=== PATIENT | female | born 1980 | race Caucasian/White ===

== ENCOUNTER 2022-02-02 14:30 | Emergency (ER) | payer MEDICAID ==
[~2022-02-02] VITALS: Ht 157.5 cm; Wt 72.6 kg
[2022-02-02 14:41] VITALS: BP 141/84
--- NOTE | 2022-02-02 14:48 | NUR ---
PT AMB TO BED 12
[2022-02-02] MEDS ORDERED: FAMOTIDINE 20 MG/2 ML VIAL IVP ONE (15:05)
[2022-02-02] MEDS ORDERED: NACL 0.9% 1,000 ML IV SCH (15:05)
[2022-02-02] MEDS ORDERED: KETOROLAC 30 MG/ML VIAL IVP ONE (15:05)
[2022-02-02] MEDS ORDERED: ONDANSETRON 4 MG/2 ML VIAL IVP ONE (15:05)
[2022-02-02 15:33] LABS: BASOPHILS # (AUTO) 0.1 K/uL (0.00-0.22); BASOPHILS % (AUTO) 0.8 % (0.0-2.0); EOSINOPHILS # (AUTO) 0.1 K/uL (0-0.4); EOSINOPHILS % (AUTO) 1.1 % (0.0-4.0); HEMATOCRIT 34.6 % (36-48); HEMOGLOBIN 11.1 g/dL (12.0-16.0); LYMPHOCYTES # (AUTO) 2.1 K/uL (2.5-16.5); LYMPHOCYTES % (AUTO) 23.1 % (20.5-51.1); MEAN CORPUSCULAR HEMOGLOBIN 23 pg (27-31); MEAN CORPUSCULAR HGB CONC 32 g/dL (33-37); MEAN CORPUSCULAR VOLUME 73.3 fL (80-94); MONOCYTES # (AUTO) 0.6 K/uL (0.8-1.0); MONOCYTES % (AUTO) 7.2 % (1.7-9.3); NEUTROPHILS # (AUTO) 6.1 K/uL (1.8-7.7); NEUTROPHILS % (AUTO) 67.8 % (42.2-75.2); PLATELET COUNT (AUTO) 290 K/uL (140-450); RED BLOOD CELL COUNT(AUTO) 4.72 MIL/uL (4.20-5.40); RED CELL DISTRIBUTION WIDTH 23.8 % (11.6-13.7)
--- NOTE | 2022-02-02 15:38 | NUR ---
COVID EMILY AND INFLUENZA SWABS COLLECTED AND HANDED TO ARLINE HALL TECH
[2022-02-02 15:59] LABS: ALBUMIN 3.8 g/dL (3.4-5.0); ANION GAP 13.9 (8-16); CARBON DIOXIDE 28.5 mmol/L (21-32); CREATININE 0.5 mg/dL (0.6-1.3); POTASSIUM 3.4 mmol/L (3.5-5.1); TOTAL BILIRUBIN 0.2 mg/dL (0.0-1.0)
[2022-02-02 16:50] LABS: APPEARANCE,URINE CLEAR (CLEAR); BILIRUBIN,URINE NEGATIVE (NEGATIVE); BLOOD, URINE NEGATIVE (NEGATIVE); COLOR,URINE YELLOW (YELLOW); LEUKOCYTE ESTERASE ,URINE NEGATIVE (NEGATIVE); NITRITE, URINE NEGATIVE (NEGATIVE); PH,URINE 6.5 (5.0-9.0); UGLUCOSE NEGATIVE (NEGATIVE)
[2022-02-02] MEDS ORDERED: BISM262C53 PO (17:13)
[2022-02-02] MEDS ORDERED: ONDA-188 PO (17:13)
[2022-02-02] MEDS ORDERED: ACET-10509 PO (17:13)
[2022-02-02] MEDS ORDERED: IBUP-2213 PO (17:13)
[2022-02-02] MEDS ORDERED: MORPHINE SULFATE 4 MG/ML SYR IVP ONE (17:15)
--- NOTE | 2022-02-02 18:04 | NUR ---
41/F PRESENTS TO ED WITH C/O INTERMITTENT CHEST X2 DAYS. PATIENT DENIES INJURY, TRAUMA OR RECENT HEAVY LIFTING. PATIENT DENIES TAKING MEDS FOR SYMPTOMS, DENIES COUGH, N/V/D, FEVERS OR RECENT SICK CONTACTS.
[2022-02-02 18:27] VITALS: BP 125/72
--- NOTE | 2022-02-02 18:27 | NUR ---
Patient discharged with v/s stable. Written and verbal after care instructions given and explained. Patient alert, oriented and verbalized understanding of instructions. Ambulatory with steady gait. All questions addressed prior to discharge. ID band removed. Patient advised to follow up with PMD. Rx of TYLENOL EXTRA STRENGTH, PEPTO BISMOL, IBUPROFEN AND ZOFRAN given. Patient educated on indication of medication including possible reaction and side effects. Opportunity to ask questions provided and answered.
== END 2022-02-02 18:27 | disposition home or self-care (01) ==
LOC: MED 14:30
DX: B34.9 Viral infection, unspecified (principal); Z20.822 Contact with and (suspected) exposure to COVID-19; R07.89 Other chest pain; R11.0 Nausea; I10 Essential (primary) hypertension; D64.9 Anemia, unspecified; Z79.899 Other long term (current) drug therapy
CPT/HCPCS: 36415; 71045; 80053; 81003; 81025; 83690; 85025; 87426; 87804; 93005; 96361; 96374; 96375; 99285; J1885; J2270; J2405; J3490

== ENCOUNTER 2023-06-14 15:55 | Emergency (ER) | payer MEDICAID ==
[~2023-06-14] VITALS: Ht 154.9 cm; Wt 74.4 kg
[2023-06-14 15:55] VITALS: BP 132/70; PULSE 71; RESP 18; TEMP 98; O2SAT 100
[~2023-06-14 15:55] MED LIST: ACET-10509 PO; BISM262C53 PO; IBUP-2213 PO; ONDA-188 PO
[2023-06-14] MEDS: NACL 0.9% 1,000 ML IV ONE (17:23)
[2023-06-14 17:28] LABS: BASOPHILS # (AUTO) 0.1 K/uL (0.00-0.22); BASOPHILS % (AUTO) 1.5 % (0.0-2.0); EOSINOPHILS # (AUTO) 0.1 K/uL (0-0.4); EOSINOPHILS % (AUTO) 0.9 % (0.0-4.0); HEMATOCRIT 27.5 % (36-48); HEMOGLOBIN 8.6 g/dL (12.0-16.0); LYMPHOCYTES # (AUTO) 2.3 K/uL (2.5-16.5); MEAN CORPUSCULAR HEMOGLOBIN 19 pg (27-31); MEAN CORPUSCULAR HGB CONC 31 g/dL (33-37); MEAN CORPUSCULAR VOLUME 60.5 fL (80-94); MONOCYTES # (AUTO) 0.6 K/uL (0.8-1.0); MONOCYTES % (AUTO) 7.3 % (1.7-9.3); NEUTROPHILS # (AUTO) 5.5 K/uL (1.8-7.7); NEUTROPHILS % (AUTO) 63.3 % (42.2-75.2); PLATELET COUNT (AUTO) 333 K/uL (140-450); RED BLOOD CELL COUNT(AUTO) 4.55 MIL/uL (4.20-5.40); RED CELL DISTRIBUTION WIDTH 18.7 % (11.6-13.7); WHITE BLOOD COUNT (AUTO) 8.7 K/uL (4.8-10.8)
[2023-06-14 17:43] LABS: ANION GAP 12.8 (8-16); CALCIUM 8.7 mg/dL (8.5-10.1); CARBON DIOXIDE 26.8 mmol/L (21-32); CREATININE 0.5 mg/dL (0.6-1.3); POTASSIUM 3.6 mmol/L (3.5-5.1)
[2023-06-14 18:04] LABS: TOTAL BILIRUBIN 0.1 mg/dL (0.0-1.0); TOTAL PROTEIN, SERUM 7.5 g/dL (6.4-8.2)
[2023-06-14 18:06] LABS: INR 0.93 (0.8-1.2); PROTHROMBIN TIME 9.8 secs (10.8-13.4)
[2023-06-14 18:24] LABS: APPEARANCE,URINE CLEAR (CLEAR); BILIRUBIN,URINE NEGATIVE (NEGATIVE); BLOOD, URINE NEGATIVE (NEGATIVE); COLOR,URINE YELLOW (YELLOW); LEUKOCYTE ESTERASE ,URINE NEGATIVE (NEGATIVE); NITRITE, URINE NEGATIVE (NEGATIVE); PROTEIN,URINE NEGATIVE (NEGATIVE); UGLUCOSE NEGATIVE (NEGATIVE); UROBILINOGEN,URINE 0.2 EU/dL (0.2 - 1)
[2023-06-14] MEDS: KETOROLAC 30 MG/ML VIAL IVP ONE (19:57)
[2023-06-14] MEDS ORDERED: HYDR-2734 TP (20:02)
[2023-06-14] MEDS ORDERED: FERR325E14 PO (20:02)
[2023-06-14] MEDS ORDERED: MIRABULK PO (20:02)
[2023-06-14 20:32] VITALS: BP 131/77; PULSE 65; RESP 16; TEMP 98; O2SAT 100
== END 2023-06-14 20:32 | disposition home or self-care (01) ==
LOC: MED 15:55
DX: R55 Syncope and collapse (principal); D50.9 Iron deficiency anemia, unspecified; J18.1 Lobar pneumonia, unspecified organism; K59.00 Constipation, unspecified; K64.4 Residual hemorrhoidal skin tags; I10 Essential (primary) hypertension; Z79.899 Other long term (current) drug therapy
CPT/HCPCS: 36415; 74177; 80048; 80076; 81003; 81025; 82948; 83690; 85025; 85610; 86886; 86900; 86901; 93005; 96361; 96374; 99285; J1885; J7030; Q9967

== ENCOUNTER 2023-10-14 12:28 | Emergency (ER) | payer MEDICAID, OTHER ==
[~2023-10-14] VITALS: Ht 157.5 cm; Wt 72.6 kg
[~2023-10-14 12:28] MED LIST changes: +FERR325E14 PO; +HYDR-2734 TP; +MIRABULK PO
[2023-10-14 12:39] VITALS: BP 156/80; PULSE 70; RESP 18; TEMP 98.5; O2SAT 100
[2023-10-14 13:30] LABS: BASOPHILS # (AUTO) 0.1 K/uL (0.00-0.22); BASOPHILS % (AUTO) 1.1 % (0.0-2.0); EOSINOPHILS # (AUTO) 0.1 K/uL (0-0.4); HEMATOCRIT 32.2 % (36-48); HEMOGLOBIN 9.9 g/dL (12.0-16.0)
[2023-10-14] MEDS: PROCHLORPERAZINE 10 MG/2 ML VIAL IVP ONE (13:33)
[2023-10-14] MEDS: NACL 0.9% 1,000 ML IV ONE (13:33)
[2023-10-14 13:37] LABS: EOSINOPHILS % (AUTO) 1.2 % (0.0-4.0); LYMPHOCYTES # (AUTO) 2.2 K/uL (2.5-16.5); LYMPHOCYTES % (AUTO) 26.7 % (20.5-51.1); MEAN CORPUSCULAR HEMOGLOBIN 20 pg (27-31); MEAN CORPUSCULAR HGB CONC 31 g/dL (33-37); MEAN CORPUSCULAR VOLUME 65.5 fL (80-94); MONOCYTES # (AUTO) 0.7 K/uL (0.8-1.0); MONOCYTES % (AUTO) 7.8 % (1.7-9.3); NEUTROPHILS # (AUTO) 5.3 K/uL (1.8-7.7); NEUTROPHILS % (AUTO) 63.2 % (42.2-75.2); PLATELET COUNT (AUTO) 310 K/uL (140-450); RED BLOOD CELL COUNT(AUTO) 4.91 MIL/uL (4.20-5.40); RED CELL DISTRIBUTION WIDTH 17.9 % (11.6-13.7); WHITE BLOOD COUNT (AUTO) 8.4 K/uL (4.8-10.8)
[2023-10-14 13:44] LABS: ANION GAP 17.8 (8-16); CALCIUM 9.1 mg/dL (8.5-10.1); CARBON DIOXIDE 23.2 mmol/L (21-32); CREATININE 0.4 mg/dL (0.6-1.3)
[2023-10-14 13:54] LABS: ALANINE AMINOTRANSFERASE 27 U/L (12-78); ALBUMIN 3.9 g/dL (3.4-5.0); ALKALINE PHOSPHATASE 64 U/L (50-136); ASPARTATE AMINOTRANSFERASE 43 U/L (15-37); LIPASE 52 U/L (16-77); TOTAL BILIRUBIN 0.3 mg/dL (0.0-1.0); TOTAL PROTEIN, SERUM 7.9 g/dL (6.4-8.2)
[2023-10-14 14:06] LABS: APPEARANCE,URINE CLEAR (CLEAR); BILIRUBIN,URINE NEGATIVE (NEGATIVE); BLOOD, URINE NEGATIVE (NEGATIVE); COLOR,URINE YELLOW (YELLOW); LEUKOCYTE ESTERASE ,URINE NEGATIVE (NEGATIVE); NITRITE, URINE NEGATIVE (NEGATIVE); PH,URINE 6.5 (5.0-9.0); PROTEIN,URINE NEGATIVE (NEGATIVE); UGLUCOSE NEGATIVE (NEGATIVE); UROBILINOGEN,URINE 0.2 EU/dL (0.2 - 1)
[2023-10-14 14:25] LABS: FLU A ANTIGEN negative (NEGATIVE); FLU B ANTIGEN NEGATIVE (NEGATIVE)
[2023-10-14 16:25] VITALS: BP 119/69; PULSE 58; RESP 12; TEMP 97.8; O2SAT 98
== END 2023-10-14 16:25 | disposition home or self-care (01) ==
LOC: MED 12:28
DX: G43.909 Migraine, unspecified, not intractable, without status migrainosus (principal); Z20.822 Contact with and (suspected) exposure to COVID-19; I10 Essential (primary) hypertension; Z79.899 Other long term (current) drug therapy
CPT/HCPCS: 36415; 70450; 80048; 80076; 81003; 81025; 83690; 84484; 85025; 87426; 87804; 93005; 96361; 96374; 99285; J0780; J7030

== ENCOUNTER 2023-12-15 13:26 | Emergency (ER) | payer OTHER ==
[~2023-12-15] VITALS: Ht 170.2 cm; Wt 71.7 kg
[~2023-12-15 13:26] MED LIST changes: -ACET-10509 PO; +ACET500T99 PO
[2023-12-15 13:34] VITALS: BP 145/57; PULSE 62; RESP 16; TEMP 99; O2SAT 99
[2023-12-15] MEDS: diazePAM 5 MG TAB PO ONE (14:07)
[2023-12-15 14:35] VITALS: O2SAT 99
[2023-12-15] MEDS ORDERED: METH-1681 PO (14:36)
[2023-12-15 14:41] VITALS: BP 145/57; PULSE 99; RESP 16; TEMP 99
== END 2023-12-15 14:43 | disposition home or self-care (01) ==
LOC: MED 13:26
DX: M54.50 Low back pain, unspecified (principal); M62.830 Muscle spasm of back; I10 Essential (primary) hypertension; Z79.899 Other long term (current) drug therapy; X50.1XXA Overexertion from prolonged static or awkward postures, initial encounter; Y93.89 Activity, other specified; Y92.89 Other specified places as the place of occurrence of the external cause; Y99.8 Other external cause status
CPT/HCPCS: 81025; 99283